=== PATIENT | male | born 1945 | race Hispanic/Latino ===

== ENCOUNTER → 2019-05-25 | Outpatient (CLI) | payer MEDICARE ==
[~2019-05-25] MED LIST: IOPAMIDOL 370 MG/ML 200 ML INFUS..BTL INJ ONE; SODIUM CHLORIDE 0.9% 100 ML 100 ML ONE
[2019-05-25 08:05] LABS: BLOOD UREA NITROGEN 24 mg/dL (8-26)
[2019-05-25 08:06] LABS: BUN/CREATININE RATIO 22 (6-25); CREATININE, SERUM 1.1 mg/dL (0.9-1.3); EST GLOMERULAR FILTRATION RATE > 60 ML/MIN (60-)
--- NOTE | 2019-05-25 09:34 | Diagnostic Imaging Report ---
EXAM: CTA Abdomen and Pelvis and Lower extremity Runoff WITH intravenous contrast INDICATION: Atherosclerotic disease, peripheral artery disease COMPARISON: None. TECHNIQUE: Abdomen and pelvis were scanned utilizing a multidetector helical scanner from the lung base to the toes after administration of IV contrast. Coronal and sagittal reformations were obtained. 3-D reconstructions were obtained and utilized in interpretation of this report. Arterial runoff protocol was performed. Scan was performed during arterial phase. IV CONTRAST: 100mL of Isovue 370 ORAL CONTRAST: None COMPLICATIONS: None RADIATION DOSE: Total DLP: 1364.2 mGy*cm Dose modulation, iterative reconstruction, and/or weight based adjustment of the mA/kV was utilized to reduce the radiation dose to as low as reasonably achievable. FINDINGS: LOWER THORAX: 4 mm right middle lobe pulmonary nodule. Mild cardiomegaly. Atherosclerotic coronary artery calcifications. HEPATOBILIARY: No focal hepatic lesions. No biliary ductal dilatation. The gallbladder appears unremarkable. SPLEEN: No splenomegaly. PANCREAS: No focal masses or ductal dilatation. ADRENALS: No adrenal nodules. KIDNEYS/URETERS: No hydronephrosis or renal calculi. Bilateral renal cysts measure up to 1.2 cm on the right and 2 cm on the left. PELVIC ORGANS/BLADDER: Unremarkable. PERITONEUM / RETROPERITONEUM: No free air or fluid. LYMPH NODES: No lymphadenopathy. VESSELS: Mild atherosclerotic calcifications of the nonaneurysmal abdominal aorta. Atherosclerotic plaque at the celiac and SMA origins resulting in mild ostial narrowing. Single right and left renal arteries with atherosclerotic calcifications resulting in mild ostial narrowing. Moderate right greater than left atherosclerotic calcifications of the common iliac arteries resulting in mild narrowing on the left and moderate narrowing on the right. Focal atherosclerotic calcification at the left common femoral artery resulting in moderate narrowing. Moderate narrowing of the right common femoral artery just proximal to the bifurcation. Multifocal atherosclerotic calcifications of the superficial femoral arteries resulting in multifocal areas of moderate to severe narrowing. Moderate to severe right popliteal artery narrowing and moderate left popliteal artery narrowing extensive bilateral infrapopliteal atherosclerotic calcifications with poor opacification of tibial vessels. Likely 2 vessel anterior tibial and peroneal runoff on the left. Likely peritoneal dominant single vessel runoff on the right. GI TRACT: Mild colonic diverticulosis. No CT evidence of diverticulitis. Normal appendix. No bowel obstruction or wall thickening. BONES AND SOFT TISSUES: Bilateral fat-containing inguinal hernias. No acute osseous injury degenerative changes of the visualized spine. No suspicious lytic or blastic lesions. IMPRESSION: 1. Atherosclerotic arterial disease with areas of luminal narrowing as below: -Mild narrowing at celiac, SMA, and right and left renal artery origins. -Mild left, moderate right common iliac artery narrowing. -Moderate right and left common femoral artery narrowing. -Moderate to severe multifocal right and left superficial femoral artery narrowing. -Moderate to severe right popliteal artery narrowing, moderate left popliteal artery narrowing. -Poor opacification of tibial vessels with likely 2 vessel anterior tibial and peroneal runoff on the left and likely peroneal single runoff on the right. 2. Coronary artery atherosclerotic calcifications. Signed by: Elizabeth Hilton MD on 05/25/2019 9:31 AM
== END ==
LOC: CT 07:14
PROVIDERS: ATTEND Internal Medicine
DX: I70.203 Unspecified atherosclerosis of native arteries of extremities, bilateral legs (principal)
CPT/HCPCS: 36415; 75635; 82565; 84520; Q9967